=== PATIENT | male | born 1975 | race Caucasian/White ===

== ENCOUNTER 2017-12-10 22:46 | Inpatient (IN) | payer MEDICAID ==
--- NOTE | 2017-12-10 23:08 | ED Physician Chart ---
ED Chief Complaint/HPI - Patient Information Date Seen:: 12/10/17 Time Seen:: 23:04 Chief Complaint:: Cough History of Present Illness:: 42 yo male had cough for 2 week, dry cough, wheezing, SOB, fever, chills. The symptoms worsened despite amoxicillin and inhaler for 10 days. Allergies:: Allergies Allergy/AdvReac Type Severity Reaction Status Date / Time No Known Allergies Allergy Verified 12/10/17 22:49 ED Review of Systems - Review of Systems General/Constitutional: Fever, Chills Skin: No bruising Head: No headache Eyes: No loss of vision ENT: Nasal drainage Neck: No neck pain Cardio Vascular: No edema Pulmonary: SOB GI: No nausea, No vomiting Musculoskeletal: No bone or joint pain ED Past Medical History - Past Medical History Past Medical History: HTN Social History: Smoker, Alcohol, No Drug Use Surgical History: other (chest trauma surgery) Family Medical History - Family Member Mother History Unknown: Yes ED Physical Exam - Physical Examination General/Constitutional: Awake Head: Atraumatic Eyes: PERRL Skin: No ecchymosis Neck: No nuchal rigidity Other Respiratory comments:: Labored breathing, wheeze Cardio Vascular: RRR, No murmur, gallop, rubs, NL S1 S2 GI: No tenderness/rebounding/guarding Extremities: normal strength in all extremities Neuro/Psych: No focal deficits ED Assessment - Assessment General Assessment: Hypoxemia Bronchitis Assessment/Comments:: CBC, CMP, CXR, ABG DuoNeb [facility] Solu-medro
[2017-12-10 23:31] LABS: % BASOPHILS 0.1 % (0.0-2.0); % EOSINOPHILS 0.7 % (0.0-5.0); % LYMPHOCYTES 15.9 % (20.0-50.0); % NEUTROPHILS 75.3 % (40.0-80.0); HEMATOCRIT 40.2 % (41.0-60); HEMOGLOBIN 13.9 gm/dL (12-16); MEAN CELL VOLUME 97.2 fl (80-99); MEAN CORPUSCULAR HEMOGLOBIN 33.5 pg (26.0-30.0); MEAN CORPUSCULAR HGB CONC 34.5 pg (28.0-36.0); MEAN PLATELET VOLUME 7.6 fl; MONOCYTE ABSOLUTE 0.5 Th/cmm (0.3-1.0); NEUTROPHILE ABSOLUTE 4.9 Th/cmm (1.8-8.0); PLATELET COUNT 200 Th/cmm (150-400); RED BLOOD COUNT 4.13 Mil/cmm (4.30-5.70); RED CELL DISTRIBUTION WIDTH 12.9 % (11.5-20.0); WHITE BLOOD COUNT 6.4 Th/cmm (4.8-10.8)
[2017-12-10 23:53] LABS: ALB/GLOB RATIO 1.3 (1.0-1.8); ALKALINE PHOSPHATASE 76 U/L (34-104); ANION GAP 11.9 (7.0-16.0); BILIRUBIN,TOTAL 0.7 mg/dL (0.3-1.0); BUN - UREA NITROGEN 9 mg/dL (7-25); CALCIUM SERUM 8.8 mg/dL (8.6-10.3); CARBON DIOXIDE 25.3 mEq/L (21.0-31.0); CHLORIDE 101 mEq/L (98-107); CREATININE - SERUM 1.3 mg/dL (0.7-1.3); GFR AFRICAN-AMERICAN > 60.0 ml/min (>90); GFR NON AFRICAN-AMERICAN > 60.0 ml/min; GLUCOSE 123 mg/dL (70-105); POTASSIUM SERUM 3.2 mEq/L (3.5-5.1); SGOT 34 U/L (13-39); SGPT/ALT 54 U/L (7-52); SODIUM SERUM 135 mEq/L (136-145); TOTAL PROTEIN,SERUM 7.1 gm/dL (6.0-8.3)
[2017-12-11] MEDS ORDERED: Potassium Chloride 20 mEq ER Tab PO ONE ×2 (00:08→00:11)
[2017-12-11] MEDS ORDERED: Albuterol/Ipratropium Neb 3 ML AERS HHN ONE ×2 (00:13→00:43)
[2017-12-11 00:24] LABS: pH 7.46 (7.35-7.45)
[2017-12-11 00:25] LABS: ALLEN TEST Positive
[2017-12-11] MEDS ORDERED: Sodium Chloride 0.9% 1,000 ML IV ONE (01:00)
[2017-12-11 04:31] LABS: INF A SCREEN NEG FOR INF A; INF B SCREEN NEG FOR INF B
[2017-12-11 06:05] LABS: ALLEN TEST Positive
--- NOTE | 2017-12-11 08:31 | History and Physical ---
History of Present Illness - HPI Chief Complaint: SOB HPI: 42 y/o male who presents to [facility] ER for SOB. Patient was seen here on Nov 25 for similar complaints and was diagnosis with pharyngitis and given Amoxicillin. Patient returns for worsening of his symptoms. States that he completed course of antibiotics. Patient has history of TOB use x 20yrs x 1-4 packs per week. Patient states that he has been diagnosed with asthma. Vital Signs: Last Vital Signs Temp 97.7 F 12/11/17 01:00 Pulse 120 12/11/17 01:00 Resp 28 12/11/17 01:00 BP 141/73 12/11/17 01:00 Pulse Ox 95 12/11/17 01:00 Past Medical History Cardiovascular: Report: No Pertinent Hx Pulmonary: Report: Asthma ELEMENTARY SECRETARY: Report: No Pertinent Hx GI: Report: No Pertinent Hx Psych: Report: No Pertinent Hx Musculoskeletal: Report: No Pertinent Hx Rheumatologic: Report: No pertinent Hx Infectious Disease: Report: No Pertinent Hx Renal/: Report: No Pertinent Hx Endocrine: Report: No Pertinent Hx Dermatology: Report: No Pertinent Hx - Past Surgical History Past Surgical History: No pertinent Hx Family Medical History - Family Member Mother History Unknown: Yes Social History Smoke: 2 packs per day Alcohol: None Drugs: None Lives: With Family - Medications Home Medications: Home Medication Medication Instructions Recorded Type Unobtainable [Unobtainable] 12/10/17 History - Allergies Allergies/Adverse Reactions: Allergies Allergy/AdvReac Type Severity Reaction Status Date / Time No Known Allergies Allergy Verified 12/10/17 22:49 Review of Systems - Review of Systems Constitutional: Report: No Significant Eyes: Report: No Significant ENT: Report: No Significant Respiratory: Report: Cough, Shortness of Breath Cardiovascular: Report: No Significant Gastrointestinal: Report: No Significant Genitourinary: Report: No Significant Musculoskeletal: Report: No Significant Skin: Report: No Significant Neurological: Report: No Significant Physical Exam - Physical Exam HEENT: Report: Ears Nose Throat within normal limits, Pharnyx within normal limits Neck: Report: Within normal limits, Thyromegaly Cardiovascular Systems: Report: +s1/s2 noted Respiratory: Report: Wheezing Abdomen: Report: Non-tender to palpation Back: Report: Inspection of back is within normal limits. Extremities: Report: Non-tender to palpation. Skin: Report: Color of skin is within normal limits, Warm Neuro/Psych: Report: Mood affect is within normal limits, A+Ox3, CN II-XII intact - Assessment Assessment: SOB Acute Asthmatic Bronchitis TOB+ possible COPD Obstructive sleep apnea ? hypokalemia - Plan Plan: Will order Azithromycin 1gm IV Solumedrol 80mg IV q12 CBC,CMP tomorrow CT chest pulmonary consult magnesium level Alb HHN treatments
[2017-12-11 09:06] LABS: ALB/GLOB RATIO 1.2 (1.0-1.8); ALBUMIN 4.3 gm/dL (4.2-5.5); ALKALINE PHOSPHATASE 74 U/L (34-104); ANION GAP 10.6 (7.0-16.0); BILIRUBIN,TOTAL 0.8 mg/dL (0.3-1.0); BUN - UREA NITROGEN 7 mg/dL (7-25); CALCIUM SERUM 9.2 mg/dL (8.6-10.3); CARBON DIOXIDE 25.7 mEq/L (21.0-31.0); CHLORIDE 103 mEq/L (98-107); CREATININE - SERUM 0.8 mg/dL (0.7-1.3); GFR AFRICAN-AMERICAN > 60.0 ml/min (>90); GFR NON AFRICAN-AMERICAN > 60.0 ml/min; GLUCOSE 184 mg/dL (70-105); MAGNESIUM 2.2 mg/dL (1.9-2.7); POTASSIUM SERUM 4.3 mEq/L (3.5-5.1); SGOT 35 U/L (13-39); SGPT/ALT 56 U/L (7-52); SODIUM SERUM 135 mEq/L (136-145); TOTAL PROTEIN,SERUM 7.8 gm/dL (6.0-8.3)
--- NOTE | 2017-12-11 09:18 | Diagnostic Imaging Report ---
CHEST X-RAY: AP view INDICATION: Cough COMPARISON: None FINDINGS: Increased interstitial lung markings are noted. No focal consolidation or effusions. Borderline prominent heart is noted. The osseous structures are intact. IMPRESSION: Increasing interstitial lung markings nonspecific, however, a mild degree of congestion cannot be completely excluded. No focal consolidation identified.
[2017-12-11] MEDS ORDERED: 0.9% NS w/20 mEq KCL 1,000 ML IV SCH (10:00)
[2017-12-11] MEDS: cefTRIAXone 1 GM in Sodium Chloride 0.9% 50 ML IV SCH (10:37)
[2017-12-11 13:36] LABS: A1C % 6.1 % (4.0-6.0)
--- NOTE | 2017-12-11 14:23 | Diagnostic Imaging Report ---
CT Chest with IV contrast HISTORY: Shortness of breath COMPARISON: Chest x-ray performed on 12/11/2017. Technique: Axial images were obtained from the base of the neck to the upper abdomen following administration of IV contrast. Coronal reconstructions were made. Total DLP 49 CTD I 8.6 Findings: Few nonenlarged mediastinal lymph nodes are noted. Heart size is at the upper limits of normal. Minimal atherosclerosis is noted. No pericardial effusion identified. No evidence of an aortic aneurysm. Assessment lung rios demonstrate hypointense atelectatic changes. Hypoventilatory change versus faint right upper lobe infiltrate is noted. There is suggestion of view tree-in-bud Opacities of the lungs. No focal consolidation or effusions. The upper abdomen demonstrates a fatty liver. Mild degenerative changes of the spine are noted. IMPRESSION: Limited exam due to motion. Hypoventilatory and atelectatic lung changes are seen with hypoventilatory change versus focal faint infiltrative of the right upper lobe. Few tree-in-bud opacities of the lungs which may be due to infectious or inflammatory process. Clinical correlation may is recommended Minimal atherosclerotic vascular disease Fatty liver.
[2017-12-11] MEDS ORDERED: Pneumococcal Vaccine 0.5 mL Vial IM ONE (14:28)
[2017-12-11] MEDS: Pantoprazole 40 mg EC Tab PO SCH (18:55)
[2017-12-11] MEDS: Albuterol/Ipratropium Neb 3 ML AERS HHN SCH (19:07)
[2017-12-11] MEDS: Budesonide 0.5 Mg/2 mL Ud HHN SCH (19:07)
--- NOTE | 2017-12-12 01:15 | Consultation ---
DATE OF CONSULTATION: 12/11/2017 REASON FOR CONSULTATION: Shortness of breath. HISTORY OF PRESENT ILLNESS: This is a 42 years old gentleman, is more than 25 to [id number] smoker, currently smokes 4-6 packs a week, still actively smoker, has some symptoms of "controlled flu-like symptoms" as well as was given ampicillin around 2 weeks ago. Subsequently, he got little better, but started having more coughing, which is mostly nonproductive, some wheezing, shortness of breath, fever, questionable chills, continue to have shortness of breath and also subsequently had runny nose, stuffy nose with significant worsening of this snoring. Hence, the patient came to the hospital, he has gained 10 pounds. No night sweats, no swelling of the legs and denies of any pleuritic chest pain, hemoptysis and has some dyspeptic symptoms. PAST MEDICAL HISTORY: None significant except for bronchitis couple of weeks ago. ALLERGIC HISTORY: Nil. SOCIAL HISTORY: Smoking history: About [id number] smoker. FAMILY HISTORY: Noncontributory. PHYSICAL FINDINGS: GENERAL: This is a middle-aged heavy set, looking gentleman, awake, alert, oriented, not in any acute distress. VITAL SIGNS: The patient's recorded vitals: Temperature is 97.5, heart rate is 100-110, blood pressure is 132/78, respirations 20-25, saturation is 98 on 2 liters per minute. HEENT: Examination of the head is essentially unremarkable. Pupils appear to be equal and reacting to light. Conjunctivae are slightly pallor. Oral cavity shows small oropharyngeal opening, otherwise unremarkable. NECK: Very short. Significant obesity issue. No palpable node. CHEST: Shows occasional wheezing with diminished air entry. HEART: Regular. ABDOMEN: Quite protuberant. EXTREMITIES: Shows no cyanosis or clubbing. LABORATORY DATA: Chest x-ray looks okay. CT shows slightly increased bronchovascular marking with some pleural base fibrous strand in the left base area and the patient's CBC, white count of 6.4, pO2 of 64 on 2 liters, which has slightly increased with pO2 of 77 and patient's electrolytes are okay with sugar of 184. IMPRESSION: 1. The patient has acute asthmatic bronchitis, superimposed chronic. This is most likely viral. I do not see any acute changes and parenchymal changes except for mild interstitial heavy markings. 2. Morbid obesity with suspect obstructive sleep apnea syndrome. 3. Tobacco dependence. PLANS AND SUGGESTIONS: 1. Discussed with the patient at length, needs to stop smoking. 2. Need to have a sleep study when he gets better. In the meantime, we will get a limited dose of steroid. We will get a flu antigen checked out. We will give inhaled steroid, bronchodilator, and if it is okay, may be in another 2-3 days can be discharged and can be followed up as an outpatient. [facility]# [id number]
[2017-12-12 05:20] LABS: HEMATOCRIT 43.5 % (41.0-60); HEMOGLOBIN 14.6 gm/dL (12-16); MANUAL DIFF REQUIRED? YES; MEAN CELL VOLUME 98.3 fl (80-99); MEAN CORPUSCULAR HEMOGLOBIN 32.9 pg (26.0-30.0); MEAN CORPUSCULAR HGB CONC 33.5 pg (28.0-36.0); MEAN PLATELET VOLUME 8.8 fl; PLATELET COUNT 227 Th/cmm (150-400); RED BLOOD COUNT 4.42 Mil/cmm (4.30-5.70); RED CELL DISTRIBUTION WIDTH 12.8 % (11.5-20.0)
[2017-12-12 05:27] LABS: WHITE BLOOD COUNT 8.8 Th/cmm (4.8-10.8)
[2017-12-12] MEDS: Budesonide 0.5 Mg/2 mL Ud HHN SCH (07:06)
[2017-12-12] MEDS: Albuterol/Ipratropium Neb 3 ML AERS HHN SCH ×3 (07:06→14:59)
--- NOTE | 2017-12-12 08:22 | General Progress Note ---
Subjective - Review of Systems Service Date: 12/12/17 Subjective: Patient was seen and examined. Patient still coughing up phelgm. more productive. wheezing. but slowly improving. Advised patient to quit smoking. Objective - Results Result Diagrams: 12/12/17 05:05 12/11/17 06:49 Recent Labs: Laboratory Last Values WBC 8.8 Th/cmm (4.8-10.8) D 12/12/17 05:05 RBC 4.42 Mil/cmm (4.30-5.70) 12/12/17 05:05 Hgb 14.6 gm/dL (12-16) 12/12/17 05:05 Hct 43.5 % (41.0-60) 12/12/17 05:05 MCV 98.3 fl (80-99) 12/12/17 05:05 MCH 32.9 pg (26.0-30.0) H 12/12/17 05:05 MCHC Differential 33.5 pg (28.0-36.0) 12/12/17 05:05 RDW 12.8 % (11.5-20.0) 12/12/17 05:05 Plt Count 227 Th/cmm (150-400) 12/12/17 05:05 MPV 8.8 fl 12/12/17 05:05 Neutrophils % 75.3 % (40.0-80.0) 12/10/17 23:20 Lymphocytes % 15.9 % (20.0-50.0) L 12/10/17 23:20 Monocytes % 8.0 % (2.0-10.0) 12/10/17 23:20 Eosinophils % 0.7 % (0.0-5.0) 12/10/17 23:20 Basophils % 0.1 % (0.0-2.0) 12/10/17 23:20 D-Dimer 149 ng/mL (100-400) 12/11/17 06:49 Specimen Source Arterial 12/11/17 05:53 Sample Site Right Radial 12/11/17 05:53 pH 7.40 (7.35-7.45) 12/11/17 05:53 pCO2 43.0 mmHg (35.0-45.0) 12/11/17 05:53 pO2 77.0 mmHg (80.0-100.0) L 12/11/17 05:53 HCO3 26.0 mEq/L (20.0-26.0) 12/11/17 05:53 Base Excess 1.5 mEq/L (-3.0-3.0) 12/11/17 05:53 O2 Saturation 95.0 % (92.0-100.0) 12/11/17 05:53 Erik Test Positive 12/11/17 05:53 Vent Rate N/A 12/11/17 05:53 Inspired O2 40% 12/11/17 05:53 Tidal Volume N/A 12/11/17 05:53 PEEP N/A 12/11/17 05:53 Pressure (ins/psv/peep) N/A 12/11/17 05:53 Critical Value HSTEHNO 12/11/17 05:53 Sodium 135 mEq/L (136-145) L 12/11/17 06:49 Potassium 4.3 mEq/L (3.5-5.1) 12/11/17 06:49 Chloride 103 mEq/L (98-107) 12/11/17 06:49 Carbon Dioxide 25.7 mEq/L (21.0-31.0) 12/11/17 06:49 Anion Gap 10.6 (7.0-16.0) 12/11/17 06:49 BUN 7 mg/dL (7-25) 12/11/17 06:49 Creatinine 0.8 mg/dL (0.7-1.3) 12/11/17 06:49 Est GFR ( Amer) > 60.0 ml/min (>90) 12/11/17 06:49 Est GFR (Non-Af Amer) > 60.0 ml/min 12/11/17 06:49 BUN/Creatinine Ratio 8.8 12/11/17 06:49 Glucose 184 mg/dL (70-105) H 12/11/17 06:49 Hemoglobin A1c % 6.1 % (4.0-6.0) H 12/11/17 06:49 Calcium 9.2 mg/dL (8.6-10.3) 12/11/17 06:49 Magnesium 2.2 mg/dL (1.9-2.7) 12/11/17 06:49 Total Bilirubin 0.8 mg/dL (0.3-1.0) 12/11/17 06:49 AST 35 U/L (13-39) 12/11/17 06:49 ALT 56 U/L (7-52) H 12/11/17 06:49 Alkaline Phosphatase 74 U/L (34-104) 12/11/17 06:49 Troponin I < 0.01 ng/mL (0.01-0.05) L 12/11/17 06:49 B-Natriuretic Peptide 39.6 pg/mL (5.0-100.0) 12/11/17 06:49 Total Protein 7.8 gm/dL (6.0-8.3) 12/11/17 06:49 Albumin 4.3 gm/dL (4.2-5.5) 12/11/17 06:49 Globulin 3.5 gm/dL 12/11/17 06:49 Albumin/Globulin Ratio 1.2 (1.0-1.8) 12/11/17 06:49 Influenza A (Rapid) NEG FOR INF A 12/11/17 03:30 Influenza B (Rapid) NEG FOR INF B 12/11/17 03:30 - Physical Exam Vitals and I&O: Vital Signs Temp 98.5 F 12/12/17 04:00 Pulse 101 12/12/17 07:20 Resp 20 12/12/17 07:20 BP 128/88 12/12/17 04:00 Pulse Ox 99 12/12/17 07:20 Intake & Output 12/11/17 12/12/17 12/12/17 18:59 06:59 18:59 Intake Total 1600 Balance 1600 Weight (lbs) 108.862 kg Intake: Oral 1600 Other: # Voids 4 # Bowel Movements 5 Active Medications: Current Medications Acetaminophen (Tylenol) 650 mg PO Q4H PRN PRN Reason: Pain (Mild) Stop: 02/09/18 08:46 Last Admin: 12/11/17 14:42 Dose: 650 mg Albuterol/Ipratropium (Duoneb Neb) 3 ml HHN [id number] [facility] Stop: 02/09/18 18:59 Last Admin: 12/12/17 07:06 Dose: 3 ml Azithromycin (Zithromax) 250 mg PO DAILY [facility] Stop: 02/09/18 09:59 Last Admin: 12/11/17 10:04 Dose: 250 mg Budesonide (Pulmicort) 0.5 mg HHN BIDRT [facility] Stop: 02/09/18 18:59 Last Admin: 12/12/17 07:06 Dose: 0.5 mg Ceftriaxone Sodium 1 gm/ (Sodium Chloride) 50 mls @ 100 mls/hr IV Q24HR [facility] Stop: 02/09/18 09:59 Last Admin: 12/11/17 10:37 Dose: 100 mls/hr Lorazepam (Ativan) 1 mg PO Q6HR PRN; Protocol PRN Reason: Alcohol Withdrawal Stop: 02/09/18 18:07 Last Admin: 12/11/17 18:55 Dose: 1 mg Methylprednisolone Sodium Succinate (Solu-Medrol) 80 mg IVP Q12HR [facility] Stop: 02/09/18 08:59 Last Admin: 12/11/17 21:36 Dose: 80 mg Nicotine (Nicotine Transdermal System) 14 mg TD DAILY [facility] Stop: 02/10/18 08:59 Oseltamivir Phosphate (Tamiflu) 75 mg PO BID [facility] Stop: 02/09/18 16:59 Last Admin: 12/11/17 18:17 Dose: Not Given Pantoprazole Sodium (Protonix) 40 mg PO DAILY [facility] Stop: 02/09/18 16:59 Last Admin: 12/11/17 18:55 Dose: 40 mg General: Alert, Oriented x3, Cooperative, No acute distress HEENT: Atraumatic, PERRLA, EOMI Neck: Supple, no JVD, no Thyromegaly Cardiovascular: Regular rate, Normal S1, Normal S2 Lungs: Other (wheezing,rhonchi) Abdomen: Bowel sounds, Soft, no Hepatomegaly, no Splenomegaly, no Distended, no Rebound, no Guarding Extremities: no Clubbing, no Cyanosis, no Edema Neurological: Normal gait, Normal speech Skin: no Rash Assessment/Plan - Assessment Assessment: SOB Acute Asthmatic Bronchitis TOB+ possible COPD Obstructive sleep apnea ? hypokalemia - Plan Plan: Will order Azithromycin 1gm IV Solumedrol 80mg IV q12 CBC,CMP tomorrow CT chest pulmonary consult magnesium level [facility] treatments steroid inhaler nicotine patch for smoking cessation Spoke to Dr. Patel who is the accepting Hospitalist in [facility]. Will transfer patient to the [facility] under pt's insurance.
[2017-12-12] MEDS ORDERED: Nicotine 14 mg/24 hr Tdm TD SCH (09:00)
[2017-12-12] MEDS: Pantoprazole 40 mg EC Tab PO SCH (09:08)
[2017-12-12 09:51] LABS: BAND NEUTROPHILE 5 % (0-10); LYMPHOCYTE 7 % (20-50); MONOCYTE 7 % (2-10); NEUTROPHILS 81 % (40-80); PLATELET ESTIMATE ADEQUATE (NORMAL); TOTAL CELLS COUNTED 100
[2017-12-12] MEDS: cefTRIAXone 1 GM in Sodium Chloride 0.9% 50 ML IV SCH (10:45)
== END 2017-12-12 18:00 | disposition short-term general hospital (02) | DRG 140 ==
LOC: ER 22:46 → MSI 12-11 08:09
PROVIDERS: ADMIT Family Medicine; ATTEND Family Medicine
DX: J44.0 Chronic obstructive pulmonary disease with (acute) lower respiratory infection (principal); E66.01 Morbid (severe) obesity due to excess calories; J20.9 Acute bronchitis, unspecified; G47.33 Obstructive sleep apnea (adult) (pediatric); E87.6 Hypokalemia; R09.02 Hypoxemia; F17.210 Nicotine dependence, cigarettes, uncomplicated; I10 Essential (primary) hypertension; Z68.31 Body mass index [BMI] 31.0-31.9, adult
CPT/HCPCS: 36415-UA; 36600-90; 71010-TC; 71260-TC; 80053-TC; 82803-TC; 83036-90; 83735-TC; 83880-TC; 84484-TC; 85007-TC; 85025-TC; 85027-TC; 85379-TC; 87804-TC; 94760; 96374; J0696; J2930; J3480; J7030; Z7610